=== PATIENT | female | born 2000 | race Caucasian/White ===

== ENCOUNTER 2020-11-29 14:40 | Emergency (ER) | payer MEDICAID, OTHER ==
[~2020-11-29] VITALS: Ht 157.5 cm; Wt 56.7 kg
[2020-11-29 16:40] VITALS: BP 122/77
[2020-11-29] MEDS ORDERED: cefTRIAXone SOD 1,000 MG VL IM ONE (16:45)
== END 2020-11-29 17:15 | disposition home or self-care (01) ==
LOC: ER 14:40
DX: J03.90 Acute tonsillitis, unspecified (principal)
CPT/HCPCS: 96372; 99283; J0696